=== PATIENT | male | born 1980 | race Caucasian/White ===

== ENCOUNTER → 2018-03-23 | Outpatient (CLI) | payer BC | LOC: LAB.O 16:35 | PROVIDERS: ATTEND Family Medicine | DX: M25.50 Pain in unspecified joint (principal); M79.7 Fibromyalgia; R53.82 Chronic fatigue, unspecified; A69.20 Lyme disease, unspecified; M10.9 Gout, unspecified; M45.9 Ankylosing spondylitis of unspecified sites in spine ==